=== PATIENT | female | born 1960 | race Caucasian/White ===

== ENCOUNTER 2023-09-27 08:05 | Outpatient (CLI) | payer OTHER, SELFPAY ==
--- NOTE | 2023-09-27 08:15 | CRLHL7_ITS ---
For Patients: As a result of the 21st Century Cures Act, medical imaging exams and procedure reports are released immediately into your electronic medical record. You may view this report before your referring provider. If you have questions, please contact your health care provider. INDICATION: Sciatica. COMPARISON: None. TECHNIQUE: Sagittal T1, T2, and STIR sequences. Axial T1 and T2 weighted sequences. FINDINGS: Trace lower lumbar curve convex the left. In sagittal plane, normal vertebral body alignment. No fractures. No vertebral body loss of height. No spondylolisthesis. No ligamentous injury. Normal marrow signal. No suspicious osseous lesions. Normal conus terminates at T12-L1. T11-12: Disc generation posted disc bulge. No narrowing of the spinal canal. No neural foraminal narrowing. T12-L1 L1-2: No spinal canal neural foraminal narrowing. L2-3: Diffuse disc bulge. No narrowing of the spinal canal. Superimposed left foraminal disc protrusion measured approximately 5 mm in short axis. No narrowing of the spinal canal. Disc protrusion results in moderate severe narrowing of the left neural foramen and impinges upon the exiting left L2 nerve root. No narrowing of the right neural foramen. Mild facet arthropathy. L3-4: Disc degeneration and posterior disc bulge. Combined with ligament flavum facet hypertrophy, there is moderate narrowing of spinal canal. Mild right and moderate severe left neural foraminal narrowing. Potential impingement of the exiting left L3 nerve root. Mild os arthropathy. L4-5: Disc degeneration and posterior disc herniation. Superimposed right paracentral subarticular disc protrusion measures approximately 4 millimeters in short axis. Moderate severe narrowing of spinal canal. Impingement of the traversing right L5 nerve root. Moderate severe right and mild left neural foraminal narrowing. Potential impingement of the exiting right L4 nerve root. Mild facet arthropathy. L5-S1: Disc degeneration loss disc height. Diffuse disc bulge. No narrowing of spinal canal. No impingement of the traversing S1 nerve roots. Moderate narrowing of bilateral foramina. Degenerative changes of the SI joints. IMPRESSION: 1. Normal alignment. No fractures 2. Lumbar spondylosis. 3. At L2-3, left foraminal disc protrusion. Moderate to severe narrowing of the left neuroforamen. Impingement of the exiting left L2 nerve root. 4. At L3-4, moderate narrowing of the spinal canal. Moderate to severe narrowing of the left neuroforamen. Potential impingement of the exiting left L3 nerve root 5. At L4-5, right paracentral and subarticular disc protrusion. Moderate to severe narrowing of the spinal canal. Impingement of the traversing right L5 nerve root. Moderate to severe right neural foraminal narrowing. Potential impingement of the exiting right L4 nerve root 6. At L5-S1, moderate narrowing of the bilateral neural foramina Dictated by Delta Sommers MD @ 09/27/2023 12:01:44 PM (Electronically Signed)
== END 2023-09-27 08:06 | disposition home or self-care (01) ==
LOC: MRI 08:06
PROVIDERS: PCP Internal Medicine; Visit Provider Internal Medicine
DX: M54.30 Sciatica, unspecified side (principal); M47.896 Other spondylosis, lumbar region; M51.26 Other intervertebral disc displacement, lumbar region
CPT/HCPCS: 72148

== ENCOUNTER 2023-10-23 09:19 | Outpatient (CLI) | payer OTHER, SELFPAY | END 2023-10-23 09:20 | disposition home or self-care (01) | LOC: NFLDREF 11-05 18:03 | PROVIDERS: PCP Internal Medicine; Referring Provider Internal Medicine; Visit Provider Internal Medicine | DX: Z13.220 Encounter for screening for lipoid disorders (principal); Z13.228 Encounter for screening for other metabolic disorders | CPT/HCPCS: 80053; 80061 ==

== ENCOUNTER 2024-12-16 08:12 | Outpatient (CLI) | payer MEDICAID, SELFPAY | END 2024-12-16 08:13 | disposition home or self-care (01) | LOC: INJ CL 08:13 | PROVIDERS: PCP Internal Medicine; Visit Provider Family Medicine | DX: M51.26 Other intervertebral disc displacement, lumbar region (principal); M54.16 Radiculopathy, lumbar region | CPT/HCPCS: 64483; J1100; Q9966 ==

== ENCOUNTER 2025-05-15 07:31 | Outpatient (CLI) | payer MEDICAID, SELFPAY ==
--- NOTE | 2025-05-15 08:00 | CRLHL7_ITS ---
For Patients: As a result of the Century Cures Act, medical imaging exams and procedure reports are released immediately into your electronic medical record. You may view this report before your referring provider. If you have questions, please contact your health care provider. Indication: ABDOMEN PAIN Technique: CT Abdomen/Pelvis 59cc ISOVUE 370 intravenous contrast Please note that all CT scans at this facility use dose modulation, iterative reconstruction, and/or weight-based dosing when appropriate to reduce radiation dose to as low as reasonably achievable. Comparison: None Findings: Subpleural areas of scarring noted in both lung bases. No pleural effusion. Multiple sub cm hypodensities are present throughout the liver, the largest measures 8 millimeters. The gallbladder is absent. Normal tapering of the common bile duct. Mild incidental post cholecystectomy reservoir effect noted. Incidental splenule. Spleen is not enlarged. No pancreatic lesion. The pancreatic duct is upper limits of normal. No adrenal nodule. Extrarenal pelvis is present bilaterally. 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 The bladder is normal. Postoperative changes hysterectomy and bilateral salpingectomy. Surgical clips are present within the deep left pelvis. No bowel obstruction or free air. No free fluid. No adenopathy. No aneurysm. No abdominal wall hernia. No vertebral body compression fracture. Degenerative changes lumbar spine. Chondrocalcinosis. Impression: Excess stool throughout the colon suggesting constipation. No mechanical obstruction or inflammation. Sub cm hypodensities throughout the liver, likely benign, however recommend liver MRI for further evaluation. Please note that all CT scans at this facility use dose modulation, iterative reconstruction, and/or weight-based dosing when appropriate to reduce radiation dose to as low as reasonably achievable. Dictated by Timmy Hudson MD @ 05/18/2025 11:39:19 AM (Electronically Signed)
[2025-05-15 08:10] LABS: Creatinine* 0.7 mg/dL (0.5-1.5); Estimated Glomerular Filt Rate 97 ml/min
== END 2025-05-15 07:32 | disposition home or self-care (01) ==
LOC: CT 07:33
PROVIDERS: PCP Internal Medicine; Visit Provider Family Medicine
DX: R10.9 Unspecified abdominal pain (principal); K76.9 Liver disease, unspecified
CPT/HCPCS: 36415; 74177; 82565; Q9967

== ENCOUNTER 2025-05-29 07:03 | Outpatient (CLI) | payer MEDICAID, SELFPAY ==
--- NOTE | 2025-05-29 07:15 | CRLHL7_ITS ---
For Patients: As a result of the Century Cures Act, medical imaging exams and procedure reports are released immediately into your electronic medical record. You may view this report before your referring provider. If you have questions, please contact your health care provider. INDICATION: Indeterminate liver lesions; follow-up and further assessment. COMPARISON: CT abdomen and pelvis with intravenous contrast 05/15/2025. TECHNIQUE: Precontrast T1 and T2 weighted imaging; T2 haste imaging; diffusion-weighted imaging ; in and out of phase imaging; postcontrast imaging including subtraction; 20 cc of dotarem contrast injected IV. FINDINGS: Multiple sub cm simple hepatic cysts throughout the liver. No focal hepatic or splenic pathology. Status post cholecystectomy. No evidence of biliary duct dilatation. No evidence of pancreatic ductal dilatation. No pancreatic pathology. No adrenal pathology. Simple cortical cyst lower pole left kidney. Impression: 1. Simple sub cm hepatic cysts. 2. S/p cholecystectomy. 3. Sub cm simple cortical cyst lower pole left kidney. Dictated by Jo England MD @ 05/29/2025 3:14:44 PM (Electronically Signed)
== END 2025-05-29 07:04 | disposition home or self-care (01) ==
LOC: MRI 07:04
PROVIDERS: PCP Internal Medicine; Visit Provider Family Medicine
DX: K76.9 Liver disease, unspecified (principal); K76.89 Other specified diseases of liver; N28.1 Cyst of kidney, acquired
CPT/HCPCS: 74183; A9575